=== PATIENT | female | born 1985 | race Caucasian/White ===

== ENCOUNTER 2021-06-05 00:10 | Observation (INO) | payer BC ==
[~2021-06-05] VITALS: Ht 165.1 cm; Wt 75.3 kg
== END 2021-06-05 02:45 | disposition home or self-care (01) ==
LOC: SPU 00:10
PROVIDERS: ADMIT Obstetrics & Gynecology; ATTEND Obstetrics & Gynecology
DX: O62.9 Abnormality of forces of labor, unspecified (principal); Z3A.40 40 weeks gestation of pregnancy
CPT/HCPCS: G0378; G0379